=== PATIENT | female | born 1940 | race Caucasian/White ===

== ENCOUNTER 2017-10-08 10:17 | Emergency (ER) | payer MEDICARE ==
[2017-10-08 10:48] VITALS: BP 177/93
--- NOTE | 2017-10-08 11:21 | UC ---
General HPI - HPI Summary HPI Summary: Patient presents to urgent care with her friend. Patient's a 77-year-old female with a history of hypertension, paroxysmal A. fib on Eliquis, and rheumatoid arthritis for which he takes methotrexate and Plaquenil. Patient lives alone. Patient states she got up 3 times last night to urinate. Patient states about 3 times she felt very unsteady on her feet. Patient states she was falling to the left and the right and felt difficulty holding her balance. Patient did not fall. Patient states she got out of bed this morning at 7:00 and ate without difficulty. Patient states she continues to feel unsteady on her feet but symptoms have improved some. Patient called a friend to bring her here to be checked out. Patient also states she felt like her blood pressure was high this morning at home but did not measure it. Patient took all of her medications as prescribed. Patient denies headache or vision changes. Patient is chest pain or shortness of breath. Patient denies abdominal pain. No nausea vomiting. No dysuria urgency or frequency. Patient states she was in her garden yesterday and did not drink enough water maybe I got dehydrated". Patient's medications reviewed this visit - History of Current Complaint Chief Complaint: UCCardiac Stated Complaint: HIGH BLOOD PRESSURE Time Seen by Provider: 10/08/17 10:30 Hx Obtained From: Patient Hx Last Menstrual Period: age 37 Onset/Duration: Sudden Onset Timing: Intermittent Episodes Lasting: Onset Severity: Moderate Current Severity: Moderate Pain Intensity: 0 - Allergy/Home Medications Allergies/Adverse Reactions: Allergies Allergy/AdvReac Type Severity Reaction Status Date / Time Penicillins Allergy Hives Verified 10/08/17 10:37 Home Medications: Home Medications Apixaban* [Eliquis*] 5 mg PO DAILY 10/08/17 [History Confirmed 10/08/17] Cholecalciferol TAB* [Vitamin D TAB*] 1,000 unit PO DAILY 10/08/17 [History Confirmed 10/08/17] Folic Acid TAB* [Folvite TAB*] 1 mg PO DAILY 10/08/17 [History Confirmed ] Hydroxychloroquine TAB* [Plaquenil TAB*] 200 mg PO DAILY 10/08/17 [History Confirmed 10/08/17] Magnesium Oxide [Magnesium] 250 mg PO DAILY 10/08/17 [History Confirmed 10/08/17 ] Metoprolol Tartrate TAB* [Lopressor TAB*] 50 mg PO DAILY 10/08/17 [History Confirmed 10/08/17] Multivit-Min/Iron/Folic/Lutein [Centrum Silver Women Tablet] 1 each PO DAILY 01/17 [History Confirmed 10/08/17] Red Yeast Rice [Red Yeast Rice] 600 mg PO DAILY 10/08/17 [History Confirmed 01/17] Vit C/E/Zn/Coppr/Lutein/Zeaxan [Preservision Areds 2 Softgel] 2 each PO DAILY [History Confirmed 10/08/17] PMH/Surg Hx/FS Hx/Imm Hx Previously Healthy: No - rheumatoid arthritis Cardiovascular History: Cardiac Disease, Hypertension, Atrial Fibrillation - Surgical History Surgical History: Yes Surgery Procedure, Year, and Place: hysterectomy; hernia at age 12 yrs - Family History Known Family History: Positive: Hypertension - Social History Occupation: Retired Lives: Alone Alcohol Use: None Substance Use Type: None Smoking Status (MU): Never Smoked Tobacco Review of Systems Constitutional: Negative Skin: Negative Cardiovascular: Other Motor: Negative Musculoskeletal: Negative Neurological: Weakness All Other Systems Reviewed And Are Negative: Yes Physical Exam - Summary Physical Exam Summary: Vital Signs Reviewed: Yes A+Ox3, no distress, appropriate Eyes: Conjunctiva Clear, JAQUELIN. EOM intact and full no nystagmus ENT: Hearing grossly normal TM x 2 clear, mmoist, uvula midline, no exudate, no erythema Neck: Positive: Supple Respiratory: Positive: No respiratory distress, No accessory muscle use + CTA throughout no w/r Cardiovascular: RRR nl s1, s2 no m/r CBT <2 sec no edema abd soft + BS nt/nd no guarding, no distension Musculoskeletal Exam: HU x 4 without difficulty Strength Intact, ROM Intact Neurological: Positive: Alert, + sensation throughout CN 2-12 intact and full + FNF b/l + heel/bolanos b/l +4/5 grasp b/l - baseline per pt + SLE b/l + great toe extension + gross sensation throughout + pt with slight imbalance with ambulation Psychological: Positive: Normal Response To Family Skin: Positive: no rash, no ecchymosis Triage Information Reviewed: Yes Vital Signs: Initial Vital Signs Temp 98.4 F 10/08/17 10:29 Pulse 54 10/08/17 10:29 Resp 14 10/08/17 10:29 BP 182/82 10/08/17 10:29 Pulse Ox 100 10/08/17 10:29 Diagnostics - EKG Cardiac Rate: NL, Bradycardia - [address], T wave changes Course/Dx - Course Course Of Treatment: Patient presents with episodes of feeling unsteady with walking since this morning. Patient with a history of A. fib and is on Eliquis. Patient also on immunosuppressant medications. Patient noted to be hypertensive. Orthostatics checked and patient's blood pressure dropped more than 20 points systolic however her heart rate did not improve decreased. It was noted patient's on beta tonia. Patient also had a fingerstick which was in the 80s. Concerned that this is hypertensive urgency versus stroke versus intracranial hemorrhage. Other differential includes infection such as UTI. Recommend patient emergency department for further evaluation. Recommend patient receive IV fluids and go by EMS. Patient adamant that she did not want to do this. Patient's friend present at the bedside and agreement to take patient. Discussed with patient AMA including deterioration road, fall with injury, permanent disability or . Patient accepting these risks and going by private car. Patient requesting to go to [facility]. Spoke with Marina Hardy NP in the emergency department was expecting the patient. Provider requested records be sent. Patient signed a release of records to [facility] emergency Department - Differential Dx - Multi-Symptom Provider Diagnoses: dizziness. hypertensive urgency. AMA Discharge - Sign-Out/Discharge Documenting (check all that apply): Discharge/Admit/Transfer - Discharge Plan Condition: Fair Disposition: AGAINST MEDICAL ADVICE Patient Education Materials: Hypertensive Crisis (ED), Dizziness (ED), Against Medical Advice (ED) Referrals: Todd Wright DO [Primary Care Provider] - Additional Instructions: - The doctor that evaluated U today recommended to the emergency department for further evaluation and treatment. The doctor that evaluated she recommended to go by ambulance measure symptoms may be related to her high blood pressure or stroke. You declined the transfer by any means but agreed to go by private vehicle. If her symptoms change or anything new develops and wrote is recommended to pulley maintainer and call 911. The Emergency department at [facility] is expecting you. - Billing Disposition and Condition Condition: FAIR Disposition: Against Medical Advice National Institutes Of Health - NIH Scale Level of Consciousness: Alert/Keenly Responsive Ask Patient the Month and His/Her Age: Both Correct Ask Pt to Open/Close Eyes and Roller Coaster Engineer/Release Non-Paretic Hand: Both Correctly Best Gaze (Only Horizontal Eye Movement): Normal Visual Field Testing: No Visual Loss Facial Paresis-Pt to Smile & Close Eyes or Grimace Symmetry: Normal/Symmetrical Motor Function - Right Arm: No Drift-Holds 10 Seconds Motor Function - Left Arm: No Drift-Holds 10 Seconds Motor Function - Right Leg: No Drift-Holds 10 Seconds Motor Function - Left Leg: No Drift-Holds 10 Seconds Limb Ataxia-Must be out of Proportion to Weakness Present: Absent Best Language (Describe Picture, Name Items): No Aphasia Dysarthria (Read Several Words): Normal Extinction and Inattention: No Abnormality
== END 2017-10-08 11:30 | disposition left against medical advice (07) ==
LOC: UCCORT 10:17
DX: I16.0 Hypertensive urgency (principal); R42 Dizziness and giddiness; I10 Essential (primary) hypertension; I48.0 Paroxysmal atrial fibrillation; M06.9 Rheumatoid arthritis, unspecified; Z79.899 Other long term (current) drug therapy
CPT/HCPCS: 93005; 99212; G0463